=== PATIENT | female | born 1935 | race Caucasian/White ===

== ENCOUNTER → 2017-10-04 | Outpatient (CLI) | payer OTHER ==
[~2017-10-04] MED LIST: ASPIR 8181 M1 PO; ATIVAN0.5 MG PO; AUGMENTIN 875875 MG PO; BILBERRY1 EAC1 PO; CARVEDILOL12.5 MG PO; CARVEDILOL25 MG; CO Q-10100 MG PO; COCONUT OIL100 GM PO; COREG25 MG; COREG25 MG PO; COZAAR 50 MG TA50 M1 PO; COZAAR 50 MG TA50 M2 PO; D3 PO; DILTIAZEM 24HR180 M1 PO; DIOVAN 80 MG TA80 M1 PO; DIOVAN HCT 1601 EAC1 PO; ELIQUIS2.5 MG PO; EYE BRIGHT PO; FISH OIL 1,001000 M1 PO; FOLIC ACID 40400 MCG PO; GARLIC OIL1 EACH PO; HAWTHORN BERRY500 MG PO; HCTZ PO; HYDROCODON-ACE1 EAC7 PO; KEFLEX500 MG PO; L-CARNITINE250 MG PO; LASIX 40 MG TAB40 M2 PO; Lutein PO; MAGNESIUM OXID400 MG PO; MULTIVITAMINS PO; PREDNISONE 20 M20 M1 PO; Tumeric PO; UNICOMPLEX M TA1 TA1 PO; VITAMIN B-12500 MCG PO; VITAMIN C1000 MG PO; VITAMIN D35000 UNI1 PO; VITAMIN E1000 UNI2 PO; VITAMIN E400 UNIT PO; VITAMINC500 PO; XOPENEX 0.63 MG/3 M1 INH; ZAROXOLYN 5MG TA5 MG PO; ZEAXANTHIN100 GM PO; ZINC30 M1 PO; ZINC50 M1 PO; ZOFRAN4 MG PO; [UNRECOGNIZED DRUG - OTHER] PO; [UNRECOGNIZED DRUG - OTHER] PO; [UNRECOGNIZED DRUG - OTHER] PO; [UNRECOGNIZED DRUG - REMARK] PO
== END ==
LOC: M.WC 10:00
DX: L97.811 Non-pressure chronic ulcer of other part of right lower leg limited to breakdown of skin (principal); L97.821 Non-pressure chronic ulcer of other part of left lower leg limited to breakdown of skin; I87.2 Venous insufficiency (chronic) (peripheral); J44.9 Chronic obstructive pulmonary disease, unspecified; I10 Essential (primary) hypertension; I89.0 Lymphedema, not elsewhere classified

== ENCOUNTER 2020-11-16 09:52 | Emergency (ER) | payer OTHER ==
[~2020-11-16] VITALS: Ht 162.6 cm; Wt 72.6 kg
[2020-11-16 10:37] LABS: ABSOLUTE BASOPHILS 0.1 thou/uL (0.0-0.2); ABSOLUTE EOSINOPHILS 0.2 thou/uL (0.0-0.7); ABSOLUTE LYMPHOCYTES 0.6 thou/uL (0.8-5.3); ABSOLUTE MONOCYTES 0.4 thou/uL (0.0-1.2); ABSOLUTE NEUTROPHILS 3.7 thou/uL (1.6-8.1); BASOPHILS 1.2 %; EOSINOPHILS 3.4 %; HEMATOCRIT 39.8 % (37.0-47.0); HEMOGLOBIN 13.3 gm/dL (12.0-15.0); LYMPHOCYTES 12.8 %; MCH 31.1 pg (26.0-34.0); MCHC 33.5 g/dL (28.0-37.0); MCV 92.9 fL (80.0-100.0); MPV 7.6 fl. (7.2-11.1); NUCLEATED RBCS 0 /100WBC; PLATELET COUNT* 192 thou/uL (150-400); POLYS 74.6 %; RBC 4.28 mil/uL (4.20-5.00); RDW-CV 16.3 % (10.5-14.5); WBC 4.9 thou/uL (4.0-11.0)
[2020-11-16 10:44] LABS: CALCIUM 9.5 mg/dL (8.5-10.1); CREATININE 1.5 mg/dL (0.6-1.3); POTASSIUM 4.1 mmol/L (3.5-5.1)
[2020-11-16 10:54] LABS: ALBUMIN 3.6 g/dL (3.4-5.0); TOTAL BILIRUBIN 0.8 mg/dL (<0.1-1.0); TOTAL PROTEIN 6.8 g/dL (6.4-8.2)
[2020-11-16] MEDS ORDERED: VENTOLIN HFA 1818 GM INH (11:33)
[2020-11-16] MEDS ORDERED: ZPAK PO (11:33)
[2020-11-16] MEDS ORDERED: PREDNISONE 20 M20 M1 PO (11:33)
[2020-11-16] MEDS ORDERED: HYDROCODON-ACE1 EAC7 PO (11:57)
[2020-11-16 12:09] VITALS: BP 181/112
--- NOTE | 2020-11-17 11:34 | EKG ---
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1935 Requested By: Alessandro Hewitt Order Number: [id number] MD: Andrew Schmitt Measurements Intervals [place] Rate: 82 P: [place]: QRS: -35 QRSD: 129 T: 53 QT: 448 QTc: 524 Interpretive Statements Atrial fibrillation Nonspecific intraventricular conduction delay Probable anteroseptal infarct, recent Compared to ECG 09/06/2015 20:15:16 Intraventricular conduction delay now present Myocardial infarct finding now present T-wave abnormality no longer present Electronically Signed On 11-17-2020 11:34:13 CDT by Andrew Schmitt [email or web address] <ELECTRONICALLY SIGNED> By: Andrew Schmitt MD, FACC 11/17/20 1134 1010 1010 Andrew Schmitt MD, FAC /EPI
== END 2020-11-16 12:11 | disposition home or self-care (01) ==
LOC: M.ERS 09:52
PROVIDERS: Family Medicine
DX: R06.00 Dyspnea, unspecified (principal); Z20.822 Contact with and (suspected) exposure to COVID-19; I11.0 Hypertensive heart disease with heart failure; I50.9 Heart failure, unspecified; I48.91 Unspecified atrial fibrillation; Z88.5 Allergy status to narcotic agent; Z88.8 Allergy status to other drugs, medicaments and biological substances

== ENCOUNTER 2021-02-08 12:35 | Inpatient (IN) | payer OTHER ==
[~2021-02-08] VITALS: Ht 170.2 cm; Wt 31.8 kg
[~2021-02-08 12:35] MED LIST changes: +VENTOLIN HFA 1818 GM INH; +ZPAK PO
[2021-02-08 12:52] VITALS: BP 155/85
[2021-02-08 13:22] LABS: HEMOGLOBIN 12.7 gm/dL (12.0-15.0); MCH 31.2 pg (26.0-34.0); MCHC 33.3 g/dL (28.0-37.0); MCV 93.8 fL (80.0-100.0); MPV 7.5 fl. (7.2-11.1); NUCLEATED RBCS 0 /100WBC; PLATELET COUNT* 194 thou/uL (150-400); RBC 4.05 mil/uL (4.20-5.00); RDW-CV 14.3 % (10.5-14.5); WBC 7.2 thou/uL (4.0-11.0)
[2021-02-08 13:35] LABS: APTT 26.5 Seconds (25.0-31.3); INR 1.1; PROTIME 11.9 Seconds (9.20-11.50)
[2021-02-08 13:39] LABS: CALCIUM 9.4 mg/dL (8.5-10.1); CREATININE 1.5 mg/dL (0.6-1.3); POTASSIUM 4.2 mmol/L (3.5-5.1)
[2021-02-08 13:51] LABS: TOTAL BILIRUBIN 0.6 mg/dL (<0.1-1.0)
[2021-02-08 15:11] LABS: ABSOLUTE EOSINOPHILS 0.1 thou/uL (0.0-0.7); ABSOLUTE LYMPHOCYTES 0.4 thou/uL (0.8-5.3); ABSOLUTE MONOCYTES 0.1 thou/uL (0.0-1.2); ABSOLUTE NEUTROPHILS 6.6 thou/uL (1.6-8.1)
--- NOTE | 2021-02-08 15:11 | EKG ---
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 : 1935 Requested By: Tanner Jean Order Number: [id number] MD: Agapito Yadav Measurements Intervals [place] Rate: 87 P: [place]: QRS: -37 QRSD: 97 T: 98 QT: 401 QTc: 483 Interpretive Statements Atrial fibrillation Left axis deviation Abnormal R-wave progression, late transition Nonspecific T abnormalities, lateral leads Borderline prolonged QT interval Compared to ECG 11/16/2020 10:10:11 no change Electronically Signed On 02-08-2021 15:11:09 CDT by Agapito Yadav [email or web address] <ELECTRONICALLY SIGNED> By: Agapito Yadav MD, FAC 02/08/21 1511 1333 1333 Agapito Yadav MD, FAC /EPI
[2021-02-08 15:12] LABS: PLATELET ESTIMATE ADEQUATE
[2021-02-08 15:45] VITALS: BP 172/94
[2021-02-08 16:15] VITALS: BP 166/82
[2021-02-08 20:00] VITALS: BP 143/77
[2021-02-09 04:39] VITALS: BP 171/96
--- NOTE | 2021-02-09 06:45 | NUR ---
PATIENT SLEPT MOST OF THE NIGHT. IV REMAINS SALINE LOCKED. PATIENT REMAINS ON OXYGEN AT 3L. PATIENT HAD NO COMPLAINTS. PATIENT SLEPT IN CHAIR WITH ALARM IN PLACE. WILL CONTINUE TO MONITOR.
[2021-02-09 08:00] VITALS: BP 175/93
--- NOTE | 2021-02-09 09:34 | NUR ---
Nutrition: Pt assessed d/t BMI recorded as 11. Per [employer], wt was 160# previously, and 170# yday. Likely error in input of wts. Cannot visit with pt on COVID unit. Likely wt is not 70#, but rather 170#. Please reweigh for accuracy.
[2021-02-09 12:00] VITALS: BP 127/79
--- NOTE | 2021-02-09 13:23 | NUR ---
Cm spoke with Pt's dtr, Tracy, via phone. Pt resides at home alone in a [facility], living community. Pt moved to her apartment in October, post living in her own home. Pt has a hx of paranoia and family/Pt felt it best for Pt to living in a home that was smaller and surrounded by more people. Pt has a hx of paranoia, refuses to go see a psychiatrist but was, at one point, placed on antipsychotics by PCP, but the med had an interaction with her current med regime, PCP did not feel comfortable trying alternate meds. Currently Pt pays friends/neighbors to stay with her overnight. Pt is home alone during the day. Dtr recognizes that Pt will likely need to be placed LTC at some point. Pt lives near [facility] and hopes that when the time comes, Pt can go there. Kids are working to sell Pt's home. Pt primarily uses a cane for mobility but also has a walker. Pt has a home o2 concentrator that someone gave her, Pt had o2 set up through a DME provider, but sent it back. Hx of HH. No hx of SNF. Pt is [place]. PUI. Rapid negative. Goal is home with HH in a few days. Left VM for Pt's dtr to update.
[2021-02-09 16:00] VITALS: BP 126/62
--- NOTE | 2021-02-09 19:46 | NUR ---
I ASSUMED CARE OF THE PATIENT AT 0700. SHE IS ALERT AND ORIENTED X4, BUT HAS SOME CONFUSION. SHE IS UP WITH ASSIST OF ONE AND A WALKER. BED IS IN THE LOW LOCKED POSITION AND CALL LIGHT IS IN REACH. PATIENT NEEDS ARE MET DURING HOURLY ROUNDING AND PAIN IS MANAGED WITH PRN MEDS. SHE HAS HOME MEDS ON HER BEDSIDE TABLE AND I PASSED INFORMATION ON TO NIGHT NURSE. BED ALARM AND CHAIR ALARM ARE ON. WILL CONTINUE TO MONITOR.
[2021-02-09 20:00] VITALS: BP 141/78
[2021-02-10 00:30] VITALS: BP 157/100
[2021-02-10 04:30] VITALS: BP 172/92
--- NOTE | 2021-02-10 06:24 | NUR ---
Alert and oriented x 4 but hard of hearing. She has slept in recliner. She has been up frequently to the bedside commode. She feels like she might have a BM. She does get up without assistance, she is very impulsive. Covid PCR was negative.
--- NOTE | 2021-02-10 07:42 | NUR ---
Also I did find 5 pills on the patient's bedside table. I was able to get them and throw them away. Dayshift nurse had reported that they were coreg,prednisone and lasix. The patient wouldn't let her take them away and said they were for today. But I have thrown them away so she isn't double dosed.
--- NOTE | 2021-02-10 14:46 | NUR ---
Anticipate dc in 1-2 days. If HH needed, fax referral to [facility] at [phone]
[2021-02-10 16:00] VITALS: BP 139/69
[2021-02-10 20:00] VITALS: BP 127/75
[2021-02-11 00:20] VITALS: BP 145/70
--- NOTE | 2021-02-11 04:09 | NUR ---
ASSUMED CARE OF PT AFTER REPORT AT 1930. PT A&OX4. VSS. PHYSICAL ASSESSMENT COMPLETED AND CHARTED. PT ON O2 AT 2L NC. PT TRACING AFIB/AFLUTTER ON TELE. PT UPSTANDBY TO BSC. PT COMPLAINED OF CONSTIPATION-REQUESTED FOR MILK OF MAG-PROVIDER MADE AWARE WITH NEW ORDER. FALL PRECAUTIONS IN PLACE. CALL LIGHT WITHIN REACH.
[2021-02-11 04:33] VITALS: BP 125/68
[2021-02-11 08:00] VITALS: BP 144/70
[2021-02-11 11:30] LABS: ABSOLUTE LYMPHOCYTES 0.4 thou/uL (0.8-5.3); ABSOLUTE MONOCYTES 0.2 thou/uL (0.0-1.2); ABSOLUTE NEUTROPHILS 5.4 thou/uL (1.6-8.1); BASOPHILS 0.3 %; HEMATOCRIT 37.6 % (37.0-47.0); HEMOGLOBIN 12.5 gm/dL (12.0-15.0); LYMPHOCYTES 5.9 %; MCHC 33.3 g/dL (28.0-37.0); MCV 93.1 fL (80.0-100.0); MONOCYTES 3.3 %; MPV 7.4 fl. (7.2-11.1); NUCLEATED RBCS 0 /100WBC; PLATELET COUNT* 200 thou/uL (150-400); POLYS 90.5 %; RBC 4.04 mil/uL (4.20-5.00); RDW-CV 14.4 % (10.5-14.5)
[2021-02-11 11:44] LABS: ALBUMIN 3.3 g/dL (3.4-5.0); CREATININE 1.9 mg/dL (0.6-1.3); POTASSIUM 3.6 mmol/L (3.5-5.1); TOTAL BILIRUBIN 0.3 mg/dL (<0.1-1.0); TOTAL PROTEIN 6.4 g/dL (6.4-8.2)
[2021-02-11 14:19] VITALS: BP 123/69
[2021-02-11 17:31] VITALS: BP 109/61
--- NOTE | 2021-02-11 18:47 | NUR ---
RECEIVED REPORT AROUND 0715. ASSUMED CARE. VS AND ASSESSMENT CHARTED. IV INTACT. HEART MONITOR ATTACHED AT AFLUTTER. PT IN CHAIR. REFUSED TO DRINK CONTRAST DRINK FOR CT. MEDS GIVEN PER JUL. TELE PSYCH DONE TODAY. NO PAIN. CALL LIGHT WITH IN REACH. WILL CONTINUE TO MONITOR
[2021-02-11 20:00] VITALS: BP 112/67
[2021-02-12 00:12] VITALS: BP 140/71
[2021-02-12 04:17] LABS: ABSOLUTE LYMPHOCYTES 0.3 thou/uL (0.8-5.3); ABSOLUTE MONOCYTES 0.2 thou/uL (0.0-1.2); ABSOLUTE NEUTROPHILS 5.3 thou/uL (1.6-8.1); BASOPHILS 0.1 %; HEMATOCRIT 37.1 % (37.0-47.0); HEMOGLOBIN 12.4 gm/dL (12.0-15.0); LYMPHOCYTES 5.8 %; MCHC 33.6 g/dL (28.0-37.0); MCV 92.4 fL (80.0-100.0); MONOCYTES 2.9 %; MPV 7.5 fl. (7.2-11.1); NUCLEATED RBCS 0 /100WBC; PLATELET COUNT* 205 thou/uL (150-400); POLYS 91.2 %; RBC 4.01 mil/uL (4.20-5.00); RDW-CV 14.3 % (10.5-14.5); WBC 5.9 thou/uL (4.0-11.0)
[2021-02-12 04:29] VITALS: BP 135/67
[2021-02-12 04:36] LABS: ALBUMIN 3.4 g/dL (3.4-5.0); MAGNESIUM 2.9 mg/dL (1.8-2.4); POTASSIUM 3.5 mmol/L (3.5-5.1); TOTAL BILIRUBIN 0.3 mg/dL (<0.1-1.0); TOTAL PROTEIN 6.5 g/dL (6.4-8.2)
--- NOTE | 2021-02-12 05:37 | NUR ---
ASSUMED CARE OF PT AFTER REPORT AT 1930. PT A&OX4. VSS. PHYSICAL ASSESSMENT COMPLETED AND CHARTED. PT ON O2 AT 2L NC. PT TRACING AFIB/AFLUTTER ON TELE. PT UPSTANDBY TO BSC. PT DENIES ANY PAIN. FALL PRECAUTIONS IN PLACE. CALL LIGHT WITHIN REACH.
[2021-02-12] MEDS ORDERED: PREDNISONE 10 M10 MG PO (07:02)
[2021-02-12] MEDS ORDERED: CEFDINIR300 MG PO (07:02)
[2021-02-12 08:00] VITALS: BP 142/70
[2021-02-12 12:15] VITALS: BP 118/57
--- NOTE | 2021-02-12 12:25 | CON ---
[address] [address] CONSULTATION Name: WALDO FARAH Room: [address] IN M.R.#: [id number] Admission: 02/08/21 Attend Phys: Gunner Monsalve Discharge: Date of : 35 Report #: [id number] THIS REPORT FOR: cc: Martin Jha Bradley L. DO Pervez, Adeel MD ~ DATE OF CONSULTATION: 02/11/2021 CONSULT REQUESTED BY: Rinku Toure DO INDICATION FOR CONSULTATION: Infiltrates/suspected lung mass. HISTORY OF PRESENT ILLNESS: An 85-year-old female. She is very hard of hearing and therefore, I was not able to communicate with her, well history therefore is mostly obtained from the chart. The patient is not reported to be a smoker. 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 She has had mild renal insufficiency with a creatinine at baseline of 1.3-1.4. The patient is now admitted here with a worsening cough, she is also being short of breath, not much sputum production is reported. She has had swelling of lower extremities. She has had erythema of lower extremities as well. She did not complain of upper respiratory complaints. Since admission, she has been treated with steroids as well as bronchodilators. She has also received broad-spectrum antibiotics and diuresis. Overall, she is feeling better. She currently is on 2 liters oxygen via nasal cannula. The patient answers to the negative for 12 questions for review of systems; however, it appears to me that she is not able to fully understand the questions on account of being hard of hearing. PAST MEDICAL HISTORY: Atrial fibrillation. 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 SOCIAL HISTORY: No known history of smoking, ethanol abuse or drug abuse. CURRENT MEDICATIONS: List in [facility] reviewed. HOME MEDICATIONS: List in [facility] reviewed. FAMILY HISTORY: No pertinent family history. ALLERGIES: CODEINE, [place] [address] CONSULTATION Name: WALDO FARAH Room: [address]#: [id number] Admission: 02/08/21 Attend Phys: Gunner Monsalve Discharge: Date of : 35 Report #: [id number] PHYSICAL EXAMINATION: GENERAL: She is alert, awake and oriented; however, is very hard of hearing. VITAL SIGNS: Pulse of 60 and a blood pressure of 144/70. She is on 2 liters nasal cannula. She is saturating 97%. Does not appear to be in any distress at this time. Respiratory rate is 18. She is afebrile with a temperature of 36.6. HEENT: Head is normocephalic and atraumatic. NECK: Does not show raised JVP or enlarged lymph node. CHEST: Breath sounds are bilaterally equal. No added sounds. HEART: Irregular. No murmur. ABDOMEN: Soft and nontender. EXTREMITIES: Lower extremities, 2+ edema bilaterally; however, there is some wrinkling noted consistent with improvement in fluid overload recently. There is significant chronic venous insufficiency. LABORATORY DATA: The patient's chest x-ray from the was reviewed and compared with the previous chest x-ray, this is discussed below in more detail with assessment and plan. The patient's lab work is in [facility] and is also reviewed. ASSESSMENT AND PLAN: 1. Pulmonary infiltrates/prominent right hilar markings/suspected lymphadenopathy/possible lung mass. I looked back at her previous chest x-rays. The prominent hilar markings/possible lung mass is not present on the x-ray performed in 2012. It first appears on the chest x-ray performed in 2014. It is again present on the x-ray performed in 2015. I do not see any major change since 2016. This 5-year stability points towards, likely a benign etiology, suspect that this mass could be secondary to enlarged lymph nodes; however, lymphoma can also lead to this picture. I would therefore go ahead and obtain a CT chest without contrast and also obtain a CT abdomen and pelvis without contrast to ascertain the extent of this process and then we will advise further. Meanwhile, I agree with continuing azithromycin as well as ceftriaxone. 2. Fluid overload/chronic renal insufficiency. Diuresis managed by Primary Service, still has significant edema; however, wrinkling on lower extremities points towards recent improvement in fluid overload. I will go ahead and add a magnesium level to her last set of labs and we will replace if indicated. 3. Bronchospasm. She currently is on Solu-Medrol as well as DuoNeb. She does not have a previous history of obstructive lung disease. I would cut back doses and see how she responds. 4. Chronic venous insufficiency. I also recommend obtaining venous Dopplers. 5. Chronic atrial fibrillation. The patient is reported to have previously refused long-term anticoagulation. [address] [address] CONSULTATION Name: WALDO FARAH Room: [facility] IN ..#: [id number] Admission: 02/08/21 Attend Phys: Gunner Monsalve Discharge: Date of : 35 Report #: [id number] Thanks for this consultation. <ELECTRONICALLY SIGNED> By: Rojelio Velez MD 02/12/21 1225 1235 [id number] Velez MD /nt
[2021-02-12 12:27] VITALS: BP 142/70
--- NOTE | 2021-02-12 14:31 | NUR ---
RECEIVED REPORT AROUND 0715. ASSUMED CARE. VS AND ASSESSMENT CHARTED. IV INTACT THIS AM. HEART MONITOR ATTACHED AT [facility] THIS AM. MEDS GIVEN PER JUL. NO BOWELMOVEMENT. HOURLY ROUNDING PERFORMED. D/C ORDERS RECEIVED. DISCHARGE PAPERWORK GIVEN TO PT. COMMUNICATED UNDERSTANDING. IV TAKEN OUT. HEART MONITOR OFF. SCRIPTS CALLED INTO [facility] ON [address] PER DAUGHTER'S REQUEST. PT LEFT VIA WHEEL CHAIR WITH NURSING STAFF AND ALL BELONGINGS OFF UNIT AT 1420.
== END 2021-02-12 14:20 | disposition home or self-care (01) | DRG 177 ==
LOC: M.ERS 12:35 → M.TBA-ER 14:57 → M.ORTHSURG 14:57
PROVIDERS: Emergency Medicine; Internal Medicine Critical Care Medicine; ADMIT Internal Medicine; ATTEND Internal Medicine
DX: J69.0 Pneumonitis due to inhalation of food and vomit (principal); G93.41 Metabolic encephalopathy; J96.01 Acute respiratory failure with hypoxia; I13.0 Hypertensive heart and chronic kidney disease with heart failure and stage 1 through stage 4 chronic kidney disease, or unspecified chronic kidney disease; I48.20 Chronic atrial fibrillation, unspecified; Z20.822 Contact with and (suspected) exposure to COVID-19; I50.9 Heart failure, unspecified; N18.9 Chronic kidney disease, unspecified; E87.70 Fluid overload, unspecified; I87.2 Venous insufficiency (chronic) (peripheral); Z88.6 Allergy status to analgesic agent; Z88.8 Allergy status to other drugs, medicaments and biological substances